=== PATIENT | male | born 1990 | race Hispanic/Latino ===

== ENCOUNTER 2021-02-07 12:25 | Emergency (ER) | payer OTHER ==
[2021-02-07 16:20] VITALS: BP 106/66
== END 2021-02-07 16:21 | disposition short-term general hospital (02) | DRG 395 ==
LOC: ED 12:25
DX: T18.198A Other foreign object in esophagus causing other injury, initial encounter (principal); X58.XXXA Exposure to other specified factors, initial encounter; Y93.89 Activity, other specified; Y92.73 Farm field as the place of occurrence of the external cause; Y99.0 Civilian activity done for income or pay